=== PATIENT | female | born 1975 | race Caucasian/White ===

== ENCOUNTER 2017-06-30 08:07 | Emergency (ER) | payer OTHER ==
[2017-06-30 08:18] VITALS: BP 139/79
--- NOTE | 2017-06-30 18:54 | ED ---
Robert Babcock Thomas, scribed for Asim Andrew MD on 06/30/17 at 0838 . Skin Complaint - HPI Summary HPI Summary: The pt is a 42 y/o F presenting to the ED c/o a bump on the bottom of her L foot s/p stepping on a bee five days ago. After the sting, she iced the bottom of her foot. The bump seemed to decrease in size two days after the sting but has since increased in size. The pain is rated 5/10. The pain is aggravated and alleviated by nothing. Pt additionally c/o painful ambulation. Pt denies erythema. PMHx: previously healthy. PSHx: none. SHx: no smoking, no illicit drugs, no alcohol. FHx: DM. - History of Current Complaint Chief Complaint: EDExtremityLower Time Seen by Provider: 06/30/17 08:17 Stated Complaint: LEFT FOOT INJURY Hx Obtained From: Patient Onset/Duration: Started Days Ago - 5 days ago, Worse Since - 3 days ago Timing: Constant Current Severity: Moderate Pain Intensity: 5 Pain Scale Used: 0-10 Numeric Skin Location: Foot - bottom of L foot Character: Swelling, Pain Aggravating Symptom(s): Nothing Alleviating Symptom(s): Nothing Related History: Insect Bite/Sting - stepped on bee - Allergy/Home Medications Allergies/Adverse Reactions: Allergies Allergy/AdvReac Type Severity Reaction Status Date / Time No Known Allergies Allergy Verified 05/07/16 19:08 PMH/Surg Hx/FS Hx/Imm Hx Previously Healthy: Yes Endocrine/Hematology History: Denies: Hx Diabetes Cardiovascular History: Denies: Hx Atrial Fibrillation - Surgical History Surgery Procedure, Year, and Place: none Infectious Disease History: No Infectious Disease History: Denies: Traveled Outside the [place] in Last 30 Days - Family History Known Family History: Positive: Diabetes Negative: Hypertension - Social History Alcohol Use: None Substance Use Type: Reports: None Smoking Status (MU): Never Smoked Tobacco Review of Systems Negative: Fever Positive: Other - POS: painful ambulation Positive: Other - POS: bump on bottom of L foot; NEG: erythema to affected region All Other Systems Reviewed And Are Negative: Yes Physical Exam - Summary Physical Exam Summary: VITAL SIGNS: Reviewed. GENERAL: ~Patient is a well-developed and nourished female who is lying comfortable in the stretcher. ~Patient is not in any acute respiratory distress. HEAD AND FACE: No signs of trauma. ~No ecchymosis, hematomas or skull depressions. No sinus tenderness. EYES: PERRLA, EOMI x 2, No injected conjunctiva, no nystagmus. EARS: Hearing grossly intact. Ear canals and tympanic membranes are within normal limits. MOUTH: Oropharynx within normal limits. NECK: Supple, trachea is midline, no adenopathy, no JVD, no carotid bruit, no c- spine tenderness, neck with full ROM. CHEST: Symmetric, no tenderness at palpation LUNGS: Clear to auscultation bilaterally. No wheezing or crackles. CVS: Regular rate and rhythm, S1 and S2 present, no murmurs or gallops appreciated. ABDOMEN: Soft, non-tender. No signs of distention. No rebound no guarding, and no masses palpated. Bowel sounds are normal. EXTREMITIES: FROM in all major joints, no edema, no cyanosis or clubbing. NEURO: Alert and oriented x 3. No acute neurological deficits. Speech is normal and follows commands. SKIN: Dry and warm Triage Information Reviewed: Yes Vital Signs On Initial Exam: Initial Vitals Temp Pulse Resp BP Pulse Ox 97.4 F 73 16 139/79 100 06/30/17 08:08 06/30/17 08:08 06/30/17 08:08 06/30/17 08:08 06/30/17 08:08 Vital Signs Reviewed: Yes - Jany Coma Scale Coma Scale Total: 15 Diagnostics - Vital Signs Vital Signs Temp Pulse Resp BP Pulse Ox 06/30/17 08:27 97.4 F 73 16 139/79 100 06/30/17 08:08 97.4 F 73 16 139/79 100 - Laboratory Lab Statement: Any lab studies that have been ordered have been reviewed, and results considered in the medical decision making process. Course/Dx - Course Assessment/Plan: The pt is a 42 y/o F presenting to the ED c/o a bump on the bottom of her L foot s/p stepping on a bee five days ago. After the sting, she iced the bottom of her foot. The bump seemed to decrease in size two days after the sting but has since increased in size. The pain is rated 5/10. The pain is aggravated and alleviated by nothing. Pt additionally c/o painful ambulation. Pt denies erythema. PMHx: previously healthy. PSHx: none. SHx: no smoking, no illicit drugs, no alcohol. FHx: DM. The physical exam was completely normal. There is no swelling, erythema, or tenderness. Therefore, the patient will be discharged with follow up by her PCP. The patient was instructed to return to the ED if she develops any new symptoms. She understands this. - Differential Diagnoses - Skin Complaint Differential Diagnoses: Cellulitis, Tinea, Urticaria - Diagnoses Provider Diagnoses: Insect sting Discharge - Discharge Plan Condition: Stable Disposition: HOME Patient Education Materials: Insect Bite or Sting (ED) Referrals: Jose Guadalupe Jones MD [Primary Care Provider] - 3 Days The documentation as recorded by the Robert martinez Thomas accurately reflects the service I personally performed and the decisions made by , Asim Andrew MD.
== END 2017-06-30 08:50 | disposition home or self-care (01) ==
LOC: ED 08:07
DX: T63.441A Toxic effect of venom of bees, accidental (unintentional), initial encounter (principal); Y92.89 Other specified places as the place of occurrence of the external cause
CPT/HCPCS: 99281